=== PATIENT | male | born 1985 | race Caucasian/White ===

== ENCOUNTER 2016-10-02 20:49 | Emergency (ER) | payer OTHER ==
[~2016-10-02] VITALS: Ht 174 cm; Wt 109.1 kg
[2016-10-02 21:03] VITALS: BP 132/86; PULSE 73; RESP 16; O2SAT 97
[2016-10-02 21:50] LABS: BASOPHILS % (AUTO) 0.3 % (0-3); EOSINOPHILS % (AUTO) 0.6 % (0-5); MONOCYTES % (AUTO) 4.8 % (4-12); Mean Corpuscular Hemoglobin 30.7 pg (27.0-35.0); NEUTROPHILS % (AUTO) 69.3 % (40-74); Platelet Count 251 bil/L (150-400)
[2016-10-02 22:09] LABS: APPEARANCE,URINE CLEAR (CLEAR,HAZY); COLOR,URINE YELLOW (YELLOW); OCCULT BLOOD,URINE NEGATIVE (NEGATIVE); PH,URINE 5.5 (5.0-8.0)
[2016-10-02 22:14] LABS: Magnesium 1.8 mg/dL (1.6-2.6)
--- NOTE | 2016-10-02 22:16 | ED.REPORT ---
HPI- Male Date of Service Oct 02, 2016 ED Provider: José Miguel Brice MD This is a 30 year old male presenting to the emergency department due to R testicular pain that began three days ago. Pain resolved yesterday but today the pain worsened. He noticed swelling of R testicle today. Denies fever, chills , dysuria, nausea, vomiting, bowel, or bladder changes at this time. Nursing Notes Stated Complaint: GROWTH ON RIGHT TESTICLE WITH PAIN Chief Complaint: Male Abdominal Pain Nursing Notes Reviewed: Yes Allergies: Coded Allergies: No Known Allergies (Unverified , 10/02/16) General Time Seen by MD: 22:13 Chief Complaint Testicle painful right Hx Obtained From: Patient Arrived By: Walk-in Onset Occurred: Yesterday Symptom Duration: Since onset Severity: Current: Mild Pertinent Negative: Pt denies other symptoms Recent Healthcare: No recent doctor visit, No recent hospitalization Similar Sx Previous: No Past Medical History Past Medical History Denies Ambulatory Status Independent Review of Systems Constitutional: Denies: Chills, Fever GI: Denies: Abdominal pain, Nausea, Vomiting Male: Reports Testicular pain, Denies Dysuria Musculoskeletal: Denies: Back pain Complete sys rev & neg: except as marked. Physical Exam Initial Vital Signs Vital Signs (First) Date Time Temp Pulse Resp B/P Pulse Ox O2 Delivery O2 Flow Rate FiO2 10/02/16 21:03 36.8 73 16 132/86 97 Room Air Initial VS: Reviewed, Vital signs normal General/Constitutional: Well-developed, Well-nourished Head / Eyes: Atraumatic, Normocephalic, PERRL ENT: Mucous membranes moist, Conjunctiva normal, No scleral icterus Neck: Supple, Non-tender, Full range of motion Respiratory: Breath sounds normal, Clear to auscultation, No respiratory distress Cardiovascular: Regular rate & rhythm, Heart sounds normal, Intact distal pulses Abdomen / GI: Soft, Non-tender, No guarding, No rebound, No distention Extremities: Vascular intact, Neuro intact, No swelling, No tenderness Skin: Warm, Dry, No cyanosis Neurologic: Alert, Oriented, Nonfocal Psychiatric: Mood/affect normal, Behavior normal, Normal thought content Male Genitourinary: No penile discharge, No meatal blood Tender R swollen testicle. Uncircumcized penis. Ring through glands of penis, subcutanous penile shaft implants, a ring in the scrotul skin at the base of the penis. Interpretation & Diagnostics US SCROTUM CONCLUSION: No testicular pathology. Small bilateral hydroceles. RADIOLOGIST: Calvin Carver MD Lab Results Interpretation Result Diagram: 10/02/16213310/02/162133 Test 10/02/16 21:30 10/02/16 21:34 Urine Color Yellow (YELLOW) Urine Appearance Clear (CLEAR,HAZY) Urine pH 5.5 (5.0-8.0) Urine Specific [place] 1.030 (1.003-1.035) Urine Protein Negativemg/dL (NEG,TRACE) Urine Glucose (UA) Negativemg/dL (NEGATIVE) Urine Ketones 40mg/dL (NEGATIVE) Urine Occult Blood Negative (NEGATIVE) Urine Nitrite Negative (NEGATIVE) Urine Bilirubin Negative (NEGATIVE) Urine Urobilinogen 1.0mg/dL (NORMAL) Urine Leukocyte Esterase Negative (NEGATIVE) Urine RBC 0-2/hpf (0-2) Urine WBC 0-5/hpf (0-5) Urine Epithelial Cells Few/hpf (NONE-MOD) Urine Crystals None seen (NONE SEEN) Urine Bacteria Few/hpf (NONE-FEW) Urine Hyaline Casts None/lpf (NONE) Urine Granular Casts None seen (NONE SEEN) Urine Waxy Casts None seen (NONE SEEN) Urine Red Blood Cell Casts None seen (NONE SEEN) Urine White Blood Cell Casts None seen (NONE SEEN) Urine Mucus Present (None Seen) Urine Trichomonas None seen (NONE SEEN) Urine Yeast None (NONE SEEN) Urinalysis Comment None Urine Culture Reflexed Not indicated White Blood Count 12.0th/mm3 (3.8-10.1) Red Blood Count 5.01mil/mm3 (4.40-5.80) Hemoglobin 15.4g/dL (13.8-17.2) Hematocrit 44.1% (41.0-50.0) Mean Corpuscular Volume 88.0fL (81-100) Mean Corpuscular Hemoglobin 30.7pg (27.0-35.0) Mean Corpuscular Hemoglobin Concent 34.9% (32.0-37.0) Red Cell Distribution Width 12.6% (12.3-15.4) Platelet Count 251bil/L (150-400) Neutrophils (%) (Auto) 69.3% (40-74) Lymphocytes (%) (Auto) 24.9% (14-46) Monocytes (%) (Auto) 4.8% (4-12) Eosinophils (%) (Auto) 0.6% (0-5) Basophils (%) (Auto) 0.3% (0-3) Sodium Level 139mEq/L (134-144) Potassium Level 3.8mEq/L (3.5-5.2) Chloride Level 100mEq/L (97-108) Carbon Dioxide Level 20mmol/L (18-29) Blood Urea Nitrogen 15mg/dL (6-20) Creatinine 0.75mg/dL (0.76-1.27) Estimat Glomerular Filtration Rate 128mL/min (>59) Glucose Level 113mg/dL (60-99) Calcium Level 9.8mg/dL (8.5-10.1) Magnesium Level 1.8mg/dL (1.6-2.6) Total Bilirubin 0.8mg/dL (0.0-1.2) Aspartate Amino Transf (AST/SGOT) 21U/L (0-50) Alanine Aminotransferase (ALT/SGPT) 35U/L (0-44) Alkaline Phosphatase 67U/L (25-150) Total Protein 8.0g/dL (6.4-8.4) Albumin 5.1g/dL (3.4-5.0) Hold Flores Top Tube Received (Received) Lab Results Interpretation: Mildly elevated white blood count Re-Eval/Medical Decision Med Decision/Clinical Course Mild and uncomplicated right epididymitis, with good flow on ultrasound. Doxycycline prepack dispensed. Follow-up with primary physician as needed. Re-Evaluation/Progress : Time of Eval: 23:19 Re-Evaluation/Progress Note: Discussed lab results and plan for discharge, pt understands and agrees with plan, all questions addressed. Counseled Regarding: Diagnosis, Lab results, Need for follow-up, When/why to return to ED Discharge & Departure Impression: Primary Impression: Right epididymitis Disposition: Home Discharge Condition All VS Reviewed: Yes Condition: Stable Patient Instructions: Epididymitis (ED) Additional Instructions: The ultrasound shows evidence of inflammation in a fluid collection but no evidence of mass or torsion. Doxycycline 100 mg by mouth twice a day for 10 days, #20 dispensed. Follow-up with your regular provider if it is not getting better in 3-5 days. Referrals: NOPCP (PCP) Scribe Attestation Portions of this note were transcribed by Olivia Harris. I, Dr. Brice personally performed the history, physical exam and medical decision-making; I reviewed and confirmed the accuracy of the information in the transcribed note. Signed by: billy Haji. 10/02/2016, 06:00. José Miguel Brice MD Oct 02, 2016 22:16 OLIVIA HARRIS Oct 02, 2016 22:24 José Miguel Brice MD Oct 02, 2016 22:16 OLIVIA HARRIS Oct 02, 2016 22:24
[2016-10-02 23:33] VITALS: BP 136/80; PULSE 76; RESP 18; O2SAT 99
[2016-10-03] MEDS ORDERED: _Doxycycline 100 mg Tablet PO SCH (08:30)
--- NOTE | 2016-10-03 08:42 | DRSVH ---
PROCEDURE: US TESTICULAR SONOGRAM WITH DOPPLER INDICATIONS: pain, swelling TECHNIQUE: Real-time scanning was performed of the scrotum and testicles, with image documentation. Color and p ulse Doppler interrogation was performed of both testicles. COMPARISON: None. FINDINGS: Right: Testicle is normal in size at 3.1 x 4.4 x 2.9 cm, and homogenous in echotexture. Epididymis is normal in overall size and morphology. Trace hydrocele. Overlying scrotal skin is normal in thic kness. Left: Testicle is normal in size at 3.3 x 3.0 2.5 cm, and homogeneous in echotexture. Epididymis is normal in overall size and morphology. Trace hydrocele. Overlying scrotal skin is normal in thickn ess. Doppler: Color and pulse Doppler demonstrate normal and symmetric arterial flow in both testicles. IMPRESSION: Trace hydroceles bilaterally otherwise normal testicles. Dictated by: Sim [facility] Interpreted: Beverly De La Vega MD on 10/03/2016 at 8:41 Transcribed by: [email or web address] on 10/03/2016 at 8:42 Approved by: Beverly De La Vega MD, PhD on 10/03/2016 at 8:45
== END 2016-10-02 23:35 | disposition home or self-care (01) ==
LOC: SED 20:49
DX: N45.1 Epididymitis (principal); N43.3 Hydrocele, unspecified

== ENCOUNTER 2016-11-16 13:01 | Emergency (ER) | payer OTHER ==
[~2016-11-16] VITALS: Ht 172.7 cm; Wt 109.1 kg
[2016-11-16 13:16] VITALS: BP 132/78; PULSE 63; RESP 18; O2SAT 96
[2016-11-16 14:40] LABS: APPEARANCE,URINE CLEAR (CLEAR,HAZY); COLOR,URINE YELLOW (YELLOW); OCCULT BLOOD,URINE NEGATIVE (NEGATIVE); UROBILINOGEN,URINE NORMAL (NORMAL)
--- NOTE | 2016-11-16 15:10 | ED.REPORT ---
HPI- Male Date of Service Nov 16, 2016 ED Provider: Brandon Langford DO 30 y/o male with no pertinent medical hx presents to the ED complaining of pain in right epididymis, onset last couple of weeks. Pt came to the ED a month ago with the same complaint and was discharged with antibiotics. Pt reports that " it got better after the antibiotics but I would still feel a little tender.Now, it has gotten worse." Pt reports mild pain to the area. Not sexually active currently Nursing Notes Stated Complaint: INFECTION FROM A MONTH AGO Chief Complaint: General Complaint Nursing Notes Reviewed: Yes Allergies: Coded Allergies: No Known Allergies (Unverified , 11/16/16) Scheduled Doxycycline Monohyd (Doxycycline Monohyd) 100 Mg Capsule 100 MG PO BID General Time Seen by MD: 15:09 Chief Complaint Testicle painful right Hx Obtained From: Patient Arrived By: Walk-in Onset Occurred: More than a week ago... (2 weeks) Symptom Duration: Since onset Location: : Testicle right Quality: Painful Radiation: : Does not radiate Severity: Current: Mild Severity: Maximum: Mild Recent Healthcare: Recent doctor visit Similar Sx Previous: Yes Past Medical History Past Medical History none reported Past Surgical History Breast surgery Smoking History Current Every Day Smoker Social History Alcohol Use: "Social" Drug Use: THC Ambulatory Status Independent Review of Systems GI: Denies: Abdominal pain, Vomiting Male: Reports Testicular pain, Reports Testicular swelling, Denies Dysuria Complete sys rev & neg: except as marked. Physical Exam Initial Vital Signs Vital Signs (First) Date Time Temp Pulse Resp B/P Pulse Ox O2 Delivery O2 Flow Rate FiO2 11/16/16 13:16 37.1 63 18 132/78 96 Room Air Initial VS: Reviewed, Vital signs normal General/Constitutional: Well-developed, Well-nourished Head / Eyes: Atraumatic, Normocephalic, PERRL ENT: Conjunctiva normal, No scleral icterus Neck: Supple, Full range of motion Respiratory: No respiratory distress Extremities: Vascular intact, Neuro intact, No swelling, No tenderness Skin: Warm, Dry, No cyanosis Neurologic: Alert, Oriented, Nonfocal Psychiatric: Mood/affect normal, Behavior normal, Normal thought content Male Genitourinary: Atraumatic, Inspection NL, Penis NL, Testes NL, No mass, No hernia, No lesions or rash Testes / Epidid / Scrotum: Positive: Epididymis tender R (mild, no redness, swelling or warmth) Interpretation & Diagnostics Lab Results Interpretation Test 11/16/16 13:07 11/16/16 15:50 Urine Color Yellow (YELLOW) Urine Appearance Clear (CLEAR,HAZY) Urine pH 6.0 (5.0-8.0) Urine Specific [place] 1.025 (1.003-1.035) Urine Protein Negativemg/dL (NEG,TRACE) Urine Glucose (UA) Negativemg/dL (NEGATIVE) Urine Ketones Negativemg/dL (NEGATIVE) Urine Occult Blood Negative (NEGATIVE) Urine Nitrite Negative (NEGATIVE) Urine Bilirubin Negative (NEGATIVE) Urine Urobilinogen Normalmg/dL (NORMAL) Urine Leukocyte Esterase Negative (NEGATIVE) Urine RBC 0-2/hpf (0-2) Urine WBC 0-5/hpf (0-5) Urine Epithelial Cells Occasional/hpf (NONE-MOD) Urine Crystals None seen (NONE SEEN) Urine Bacteria Few/hpf (NONE-FEW) Urine Hyaline Casts None/lpf (NONE) Urine Granular Casts None seen (NONE SEEN) Urine Waxy Casts None seen (NONE SEEN) Urine Red Blood Cell Casts None seen (NONE SEEN) Urine White Blood Cell Casts None seen (NONE SEEN) Urine Mucus Present (None Seen) Urine Trichomonas None seen (NONE SEEN) Urine Yeast None (NONE SEEN) Urinalysis Comment None Urine Culture Reflexed Not indicated Re-Eval/Medical Decision Med Decision/Clinical Course Recurrent testicle pain which is insidious in onset I doubt this is torsion, will treat for epididymitis, gonorrhea, cardiac, urine culture sent, recommend close follow-up with urology. Return precautions given. Source of Hx: Old records Re-Evaluation/Progress : Time of Eval: 15:09 Re-Evaluation/Progress Note: Pt rechecked. Discussed diagnosis and the plan to discharge. Pt understands and agrees with plan. F/U instructions and RTER warning given. All questions addressed. Counseled Regarding: Diagnosis, Need for follow-up, When/why to return to ED Discharge & Departure Impression: Primary Impression: Right epididymitis Disposition: Home Discharge Condition All VS Reviewed: Yes Condition: Stable Patient Instructions: Epididymitis (ED) Additional Instructions: Call the urologist today to schedule an appointment for follow up. Take the antibiotic Doxycycline as directed. You can take ibuprofen for pain. For scrotal support you can wear boxer briefs. Return to the ER for any new or concerning symptoms. Referrals: Beverly Walton MD Scribe Attestation Portions of this note were transcribed by Terri Regan and Chandrika Pritchard. I, personally performed the history, physical exam and medical decision- making;I reviewed and confirmed the accuracy of the information in the transcribed note. Signed by Terri Regan and Dawood Hewitt. 11/14/16 1559. copies to: Beverly Walton MD, Timothy S DO Nov 16, 2016 15:10 Terri Regan Nov 16, 2016 15:19 Chandrika Pritchard Nov 16, 2016 16:09
[2016-11-16] MEDS ORDERED: cefTRIAXone Inj 500 MG, Lidocaine PF 1% Inj 1 ML in Syringe 1 EACH IM ONE (15:20)
[2016-11-16] MEDS ORDERED: DOXY100C43 PO (15:24)
[2016-11-16 16:18] VITALS: BP 115/74; PULSE 64; RESP 20; O2SAT 96
== END 2016-11-16 16:19 | disposition home or self-care (01) ==
LOC: SED 13:01
DX: N45.1 Epididymitis (principal); F12.10 Cannabis abuse, uncomplicated; F17.210 Nicotine dependence, cigarettes, uncomplicated
CPT/HCPCS: 81000; 81002; 87086; 87088; 87591; 96372; 99284; J0696